=== PATIENT | female | born 1985 | race Caucasian/White ===

== ENCOUNTER 2018-06-12 00:32 | Emergency (ER) | payer SELFPAY ==
[2018-06-12 01:13] LABS: PLATELET COUNT 234 10^3/uL (150-400)
--- NOTE | 2018-06-12 01:29 | EDPHY ---
H & P Stated Complaint: RLQ abd apin Time Seen by Provider: 06/12/18 01:04 HPI/ROS: HPI The patient presents with right-sided lower abdominal pain which has been present for the last 2 months though getting more severe. She describes a dull pain which she feels in the location of her right hip which is worse with standing, laughing, coughing. It is intermittent and over the last 2 weeks has been associated with upper abdominal pain which is similar in nature. She has no nausea or vomiting. No fevers or chills, no constipation or diarrhea. She has no prior history of abdominal pain or any abdominal operations. She says she eats a very healthy diet.. REVIEW OF SYSTEMS Constitutional: No fever, no chills. Eyes: No discharge. ENT: No sore throat. Cardiovascular: No chest pain, no palpitations. Respiratory: No cough, no shortness of breath. Gastrointestinal: No abdominal pain, no vomiting. Genitourinary: No hematuria. Musculoskeletal: No back pain. Skin: No rashes. Neurological: No headache. PMHx: History of left knee operation Soc Hx: Nonsmoker PHYSICAL General Appearance: Alert, no distress Eyes: Pupils equal and round no pallor or injection ENT, Mouth: Mucous membranes moist Respiratory: There are no retractions, lungs are clear to auscultation Cardiovascular: Regular rate and rhythm Gastrointestinal: Abdomen is soft and tender in the right lower quadrant and right upper quadrant Neurological: A&O, moves all extremities Skin: Warm and dry, no rashes Musculoskeletal: Neck is supple non tender Extremities: symmetrical, full range of motion Psychiatric: Patient is oriented X 3, there is no agitation Source: Patient Exam Limitations: No limitations - Personal History LMP (Females 10-55): 15-21 Days Ago Current Tetanus/Diphtheria Vaccine: Unsure Current Tetanus Diphtheria and Acellular Pertussis (TDAP): Unsure - Medical/Surgical History Hx Asthma: No Hx Chronic Respiratory Disease: No Hx Diabetes: No Hx Cardiac Disease: No Hx Renal Disease: No Hx Cirrhosis: No Hx Alcoholism: No Hx HIV/AIDS: No Hx Splenectomy or Spleen Trauma: No Other PMH: Hrniated disks, L knee sx - Social History Smoking Status: Never smoked Constitutional: Initial Vital Signs Temperature (C) 36.6 C 06/12/18 00:45 Heart Rate 67 06/12/18 00:45 Respiratory Rate 16 06/12/18 00:45 Blood Pressure 109/77 06/12/18 00:45 O2 Sat (%) 98 06/12/18 00:45 O2 Delivery Mode Room Air Allergies/Adverse Reactions: No Known Allergies Allergy (Unverified 06/12/18 00:49) Home Medications: Medication Instructions Recorded NK [No Known Home Meds] 06/12/18 Medical Decision Making - Diagnostics Imaging Results: Ultrasound right lower quadrant and pelvic demonstrate no pelvic pathology, bowel gas obscures any findings in the right lower quadrant, discussed with the radiologist motion picture set grip. CT scan of abdomen pelvis with IV contrast demonstrates mild constipation, discussed with the radiologist motion picture set grip. Differential Diagnosis: 33-year-old healthy female presents with right-sided abdominal pain for the last 2 months intermittently. There are no other symptoms. On exam, well- appearing, vital signs normal, she does have tenderness throughout her abdomen with no obvious mass. Differential diagnosis includes appendicitis, ovarian cyst, colitis, diverticulitis, biliary colic. In the emergency department, laboratories were obtained and were unremarkable except for UA she which demonstrated possible be urinary tract infection. The patient does not have any irritative voiding symptoms, thus I believe UTI is unlikely. Ultrasounds were performed and were nondiagnostic. We discussed risks and benefits of CT scan and patient would like to proceed. CT scan is unremarkable though the patient does have some constipation which could be responsible for her symptoms. I have explained this to her. I have encouraged her to try a laxative and a high-fiber diet. She would like to try some nontraditional treatments. She does not have a primary care doctor, because she recently moved to the area though does have someone in mind. I explained to her given that there is some diagnostic uncertainty I would like for her to follow up with the primary care doctor and she is happy with this plan. - Data Points Laboratory Results: Laboratory Results 06/12/18 01:05 06/12/18 01:05 Microbiology Results: MICROBIOLOGY 06/12/18 01:27 Urine,Clean Catch Urine Culture - Preliminary Departure - Departure Disposition: Home, Routine, Self-Care Clinical Impression: RLQ abdominal pain, Constipation Condition: Good Instructions: Constipation (ED) Additional Instructions: I recommend you drink plenty of fluids. You can try prune juice for constipation. I would recommend getting a primary care doctor for further treatment for your symptoms. Referrals: NONE *PRIMARY CARE P,. [Primary Care Provider] - As per Instructions
[2018-06-12] MEDS ORDERED: IOPAMIDOL (ISOVUE-300) 100 ML BTL ONE (02:42)
[2018-06-12 04:25] VITALS: BP 116/75
== END 2018-06-12 04:24 | disposition home or self-care (01) ==
DX: K59.00 Constipation, unspecified (principal)
CPT/HCPCS: Q9967